=== PATIENT | female | born 1945 | race Caucasian/White ===

== ENCOUNTER → 2017-03-03 | Outpatient (CLI) | payer BC ==
--- NOTE | 2017-03-03 15:58 | RAD ---
DATE: 03/03/2017 EXAM: DIGITAL SCREEN BILAT W/CAD HISTORY: Screening study. COMPARISON: 10/31/2013 This study was interpreted with the benefit of Computerized Aided Detection (CAD). FINDINGS: Digital MLO and CC mammograms of both breasts were obtained. Comparison study is dated 10/31/2013. The breast parenchyma is heterogeneously dense which can obscure a lesion on mammography (breast density code C). Benign-appearing calcifications are seen within both breasts. No spiculated mass is seen. No malignant appearing calcification or area of architectural distortion is noted. IMPRESSION: BI-RADS Category 1, negative. There is no mammographic evidence of malignancy. Routine yearly screening mammography is recommended for follow-up. BI-RADS CATEGORY: 1 NEGATIVE RECOMMENDED FOLLOW-UP: 12M 12 MONTH FOLLOW-UP PQRS compliance statement: Patient information was entered into a reminder system with a target due date 03/03/2018 for the next mammogram. Mammography is a sensitive method for finding small breast cancers, but it does not detect them all and is not a substitute for careful clinical examination. A negative mammogram does not negate a clinically suspicious finding and should not result in delay in biopsying a clinically suspicious abnormality. "Our facility is accredited by the [employer] Mammography [employer]."
== END | disposition home or self-care (01) ==
LOC: MAMMO 08:47
PROVIDERS: ATTEND Family Medicine
DX: Z12.31 Encounter for screening mammogram for malignant neoplasm of breast (principal)
CPT/HCPCS: G0202; 77067

== ENCOUNTER → 2018-03-28 | Outpatient (CLI) | payer BC | END | disposition home or self-care (01) | LOC: MAMMO 09:23 | DX: Z12.31 Encounter for screening mammogram for malignant neoplasm of breast (principal); E78.5 Hyperlipidemia, unspecified | CPT/HCPCS: 77063; 77067 ==

== ENCOUNTER → 2019-04-03 | Outpatient (CLI) | payer BC ==
--- NOTE | 2019-04-03 15:47 | RAD ---
DATE: 04/03/2019. EXAM: MAMMO ANGELA SCREENING BILATERAL HISTORY: Routine screening. COMPARISON: . Mammogram from 2017 2016. This study was interpreted with the benefit of Computerized Aided Detection (CAD). FINDINGS: Breast Density: SCATTERED The breast parenchyma shows scattered fibroglandular densities. Breast parenchyma level B. The skin and nipples are within normal limits. No suspicious calcifications, spiculated mass or area of architectural distortion. IMPRESSION: No mammographic evidence of malignancy. Stable mammogram. BI-RADS CATEGORY: 2 BENIGN FINDING(S) RECOMMENDED FOLLOW-UP: 12M 12 MONTH FOLLOW-UP PQRS compliance statement: Patient information was entered into a reminder system with a target due date for the next mammogram. Mammography is a sensitive method for finding small breast cancers, but it does not detect them all and is not a substitute for careful clinical examination. A negative mammogram does not negate a clinically suspicious finding and should not result in delay in biopsying a clinically suspicious abnormality. "Our facility is accredited by the [employer] Mammography [employer]."
== END | disposition home or self-care (01) ==
LOC: MAMMO 14:03
PROVIDERS: ATTEND Family Medicine
DX: Z12.31 Encounter for screening mammogram for malignant neoplasm of breast (principal)
CPT/HCPCS: 77063; 77067

== ENCOUNTER → 2019-04-21 | Day surgery (SDC) | payer BC ==
[~2019-04-21] MED LIST: AMLO-292 PO; ATEN1TAB3 PO; GLIP5TAB10 PO; HYDROmorphone 2 MG/ML VIAL IV PRN; INSU100C4 SQ; INSU100V37 SQ; IV RINGERS,LACTATED 1000ML 1,000 ML IV SCH; LIDOCAINE 2% PF 5 ML VIAL. ONE; MORPHINE SULFATE 2 MG/ML VIAL. IV PRN; ONDANSETRON PF 4 MG/2 ML VIAL. IV PRN; PROCHLORPERAZINE 10 MG/2 ML VIAL. IV PRN; PROPOFOL 20 ML IV ONE; fentaNYL PF VIAL 100 MCG/2 ML VIAL IV PRN
[2019-04-21 08:25] VITALS: BP 164/78
== END ==
LOC: SURG 06:18
PROVIDERS: ATTEND Internal Medicine Gastroenterology
DX: Z12.11 Encounter for screening for malignant neoplasm of colon (principal); K64.0 First degree hemorrhoids; K63.89 Other specified diseases of intestine; E11.9 Type 2 diabetes mellitus without complications; I10 Essential (primary) hypertension; E78.00 Pure hypercholesterolemia, unspecified; F15.90 Other stimulant use, unspecified, uncomplicated; Z79.82 Long term (current) use of aspirin; Z79.84 Long term (current) use of oral hypoglycemic drugs; Z90.710 Acquired absence of both cervix and uterus; Z98.51 Tubal ligation status; Z80.0 Family history of malignant neoplasm of digestive organs
CPT/HCPCS: 45378; 82962; J2001; J2704

== ENCOUNTER 2019-11-05 07:56 | Observation (INO) | payer BC ==
[~2019-11-05] VITALS: Ht 175.3 cm; Wt 76.8 kg
[2019-11-05] VITALS (7 sets, daily range): BP systolic 135–173; BP diastolic 72–88
[~2019-11-05 07:56] MED LIST changes: -HYDROmorphone 2 MG/ML VIAL IV PRN; -IV RINGERS,LACTATED 1000ML 1,000 ML IV SCH; -LIDOCAINE 2% PF 5 ML VIAL. ONE; -MORPHINE SULFATE 2 MG/ML VIAL. IV PRN; -ONDANSETRON PF 4 MG/2 ML VIAL. IV PRN; -PROCHLORPERAZINE 10 MG/2 ML VIAL. IV PRN; -PROPOFOL 20 ML IV ONE; -fentaNYL PF VIAL 100 MCG/2 ML VIAL IV PRN
--- NOTE | 2019-11-05 08:18 | PHYS DOC ---
Past Medical History Past Medical History: Diabetes-Type II, Hypertension Adult General Chief Complaint Chief Complaint: DIZZY/LIGHT HEADED HPI HPI Patient is a 74 year old female who presented to ER today for evaluation of dizziness, the room spinning, symptoms get worse with head movement or upright position. Patient denies any headache, no weakness or numbness anywhere. Patient denies any blurry vision. Patient denies any chest pain, no trouble breathing. Patient went to sleep last night 8:30 p.m., she was doing okay then. Patient woke up this morning at 6:45 AM, she started having the symptoms when she sat up. She denies any ringing in her ear. Review of Systems Review of Systems All other ROS is negative unless otherwise noted in HPI Current Medications Current Medications Current Medications Medications (Trade) Dose Ordered Sig/Julee Start Time Stop Time Status Last Admin Dose Admin Meclizine HCl (Antivert) 25 mg 1X ONCE 11/05/19 09:30 11/05/19 09:31 DC 11/05/19 09:34 25 MG Allergies Allergies Allergies Coded Allergies Type Severity Reaction Last Updated Verified No Known Drug Allergies 04/21/19 No Physical Exam Physical Exam See aboveSee above Constitutional: Well developed, well nourished, no acute distress, non-toxic appearance. [] HENT: Normocephalic, atraumatic, bilateral external ears normal, oropharynx moist, no oral exudates, nose normal. [] Eyes: PERRLA, EOMI, conjunctiva normal, no discharge. [] Neck: Normal range of motion, no tenderness, supple, no stridor. [] Cardiovascular:Heart rate regular rhythm, no murmur [] Lungs & Thorax: Bilateral breath sounds clear to auscultation [] Abdomen: Bowel sounds normal, soft, no tenderness, no masses, no pulsatile masses. [] Skin: Warm, dry, no erythema, no rash. [] Back: No tenderness, no CVA tenderness. [] Extremities: No tenderness, no cyanosis, no clubbing, ROM intact, no edema. [] Neurologic: Alert and oriented X 3, normal motor function, normal sensory function, no focal deficits noted. [] Psychologic: Affect normal, judgement normal, mood normal. [] Current Patient Data Vital Signs Vital Signs Date Time Temp Pulse Resp B/P (MAP) Pulse Ox O2 Delivery O2 Flow Rate FiO2 2/16/20 10:32 86 16 100 11/05/19 08:22 98.1 200/91 (127) Room Air 98.1 Lab Values Laboratory Tests Test 11/05/19 09:45 White Blood Count 7.7 x10^3/uL (4.0-11.0) Red Blood Count 4.03 x10^6/uL (3.50-5.40) Hemoglobin 11.7 g/dL (12.0-15.5) L Hematocrit 34.6 % (36.0-47.0) L Mean Corpuscular Volume 86 fL (79-100) Mean Corpuscular Hemoglobin 29 pg (25-35) Mean Corpuscular Hemoglobin Concent 34 g/dL (31-37) Red Cell Distribution Width 13.1 % (11.5-14.5) Platelet Count 230 x10^3/uL (140-400) Neutrophils (%) (Auto) 68 % (31-73) Lymphocytes (%) (Auto) 24 % (24-48) Monocytes (%) (Auto) 7 % (0-9) Eosinophils (%) (Auto) 1 % (0-3) Basophils (%) (Auto) 1 % (0-3) Neutrophils # (Auto) 5.2 x10^3/uL (1.8-7.7) Lymphocytes # (Auto) 1.9 x10^3/uL (1.0-4.8) Monocytes # (Auto) 0.5 x10^3/uL (0.0-1.1) Eosinophils # (Auto) 0.1 x10^3/uL (0.0-0.7) Basophils # (Auto) 0.1 x10^3/uL (0.0-0.2) Prothrombin Time 12.7 SEC (11.7-14.0) Prothrombin Time INR 1.0 (0.8-1.1) Sodium Level 141 mmol/L (136-145) Potassium Level 4.2 mmol/L (3.5-5.1) Chloride Level 108 mmol/L (98-107) H Carbon Dioxide Level 22 mmol/L (21-32) Anion Gap 11 (6-14) Blood Urea Nitrogen 36 mg/dL (7-20) H Creatinine 1.3 mg/dL (0.6-1.0) H Estimated GFR (Cockcroft-Gault) 48.2 BUN/Creatinine Ratio 28 (6-20) H Glucose Level 127 mg/dL (70-99) H Calcium Level 9.2 mg/dL (8.5-10.1) Magnesium Level 1.8 mg/dL (1.8-2.4) Total Bilirubin 0.4 mg/dL (0.2-1.0) Aspartate Amino Transferase (AST) 25 U/L (15-37) Alanine Aminotransferase (ALT) 31 U/L (14-59) Alkaline Phosphatase 92 U/L (46-116) Troponin I Quantitative < 0.017 ng/mL (0.000-0.055) UM-Teb-R-Type Natriuretic Peptide 278 pg/mL (0-449) Total Protein 7.4 g/dL (6.4-8.2) Albumin 3.0 g/dL (3.4-5.0) L Albumin/Globulin Ratio 0.7 (1.0-1.7) L Lipase 126 U/L (73-393) Laboratory Tests 11/05/19 09:45 Laboratory Tests 11/05/19 09:45 EKG EKG EKG WAS DONE AT 840, RATE OF 82 BPM, NO STEMI [] Radiology/Procedures Radiology/Procedures [][facility] [address] [place] [address] IMAGING REPORT Signed PATIENT: KEVIN MADRIGAL ACCOUNT: [id number] : 1945 LOCATION: ER AGE: 74 SEX: F EXAM STATUS: REG ER ORD. PHYSICIAN: CORA SANTANA DO REASON: soa PROCEDURE: PORTABLE CHEST 1V Study: PORTABLE CHEST 1V Indication: Shortness of air. Comparison: None available. Findings: The cardiomediastinal silhouette is prominent in size. No overt central vascular congestion. Ill-defined haziness at the left lung base such is seen approaching the costophrenic angle. No lobar consolidation. No layering effusion or pneumothorax. Impression: 1. Prominence of the cardiomediastinal silhouette without features of overt failure/volume overload. 2. Mild ill-defined haziness at the lower left lung which could represent atelectasis or potentially an infiltrate in the appropriate clinical setting. Electronically signed by: AD MCNEILL MD (11/05/2019 8:35 AM) [facility] DICTATED and SIGNED BY: AD MCNEILL MD DATE: 11/05/19834 [facility] [address] [place] [address] IMAGING REPORT Signed PATIENT: KEVIN MADRIGAL ACCOUNT: [id number] : 1945 LOCATION: ER AGE: 74 SEX: F EXAM STATUS: REG ER ORD. PHYSICIAN: CORA SANTANA DO REASON: woke up with dizziness, room spinning around PROCEDURE: CT HEAD WO CONTRAST STUDY: CT head without contrast INDICATION: Dizziness. COMPARISON: None. TECHNIQUE: Axial CT imaging through the head without the use of intravenous contrast. Sagittal and coronal reformats were obtained. One or more of the following individualized dose reduction techniques were utilized for this examination: 1. Automated exposure control 2. Adjustment of the mA and/or kV according to patient size 3. Use of iterative reconstruction technique. FINDINGS: No acute intracranial hemorrhage. No CT evidence for an acute cortical infarction. No mass effect, midline shift or hydrocephalus. Intracranial atherosclerotic calcifications. White matter findings that are nonspecific but often seen in the setting of chronic microvascular ischemic change. Intact calvarium. Paranasal sinus mucosal thickening. Though not fully visualized, no layering fluid is seen within the paranasal sinuses. Normally aerated mastoid air cells and middle ears. IMPRESSION: 1. No acute intracranial abnormality by CT. 2. The paranasal sinuses are not fully visualized but the portion that is seen exhibits multifocal mucosal thickening. No layering fluid is identified but recommend correlation for symptoms of sinusitis. Unremarkable mastoid air cells and middle ears. Electronically signed by: AD MCNEILL MD (11/05/2019 8:44 AM) [facility] DICTATED and SIGNED BY: AD MCNEILL MD DATE: 11/05/19843 Course & Med Decision Making Course & Med Decision Making Pertinent Labs and Imaging studies reviewed. (See chart for details) Patient became very dizzy when she got up to use the toilet. Will admit her to the hospital for observation. Dragon Disclaimer Dragon Disclaimer This electronic medical record was generated, in whole or in part, using a voice recognition dictation system. Departure Departure Impression: Primary Impression: Dizziness Disposition: ADMITTED INPATIENT Admitting Physician: GWYN (DR. PAEZ) Condition: STABLE Referrals: NON,STAFF (PCP) CORA SANTANA DO Nov 05, 2019 08:18
--- NOTE | 2019-11-05 08:38 | RAD ---
Study: PORTABLE CHEST 1V Indication: Shortness of air. Comparison: None available. Findings: The cardiomediastinal silhouette is prominent in size. No overt central vascular congestion. Ill-defined haziness at the left lung base such is seen approaching the costophrenic angle. No lobar consolidation. No layering effusion or pneumothorax. Impression: 1. Prominence of the cardiomediastinal silhouette without features of overt failure/volume overload. 2. Mild ill-defined haziness at the lower left lung which could represent atelectasis or potentially an infiltrate in the appropriate clinical setting. Electronically signed by: AD MCNEILL MD (11/05/2019 8:35 AM) [facility]
--- NOTE | 2019-11-05 08:47 | RAD ---
STUDY: CT head without contrast INDICATION: Dizziness. COMPARISON: None. TECHNIQUE: Axial CT imaging through the head without the use of intravenous contrast. Sagittal and coronal reformats were obtained. One or more of the following individualized dose reduction techniques were utilized for this examination: 1. Automated exposure control 2. Adjustment of the mA and/or kV according to patient size 3. Use of iterative reconstruction technique. FINDINGS: No acute intracranial hemorrhage. No CT evidence for an acute cortical infarction. No mass effect, midline shift or hydrocephalus. Intracranial atherosclerotic calcifications. White matter findings that are nonspecific but often seen in the setting of chronic microvascular ischemic change. Intact calvarium. Paranasal sinus mucosal thickening. Though not fully visualized, no layering fluid is seen within the paranasal sinuses. Normally aerated mastoid air cells and middle ears. IMPRESSION: 1. No acute intracranial abnormality by CT. 2. The paranasal sinuses are not fully visualized but the portion that is seen exhibits multifocal mucosal thickening. No layering fluid is identified but recommend correlation for symptoms of sinusitis. Unremarkable mastoid air cells and middle ears. Electronically signed by: AD MCNEILL MD (11/05/2019 8:44 AM) [facility]
[2019-11-05] MEDS ORDERED: MECLIZINE HCL 12.5 MG TABLET. PO ONE (09:30)
[2019-11-05 09:55] LABS: BASO # 0.1 x10^3/uL (0.0-0.2); BASO % 1 % (0-3); EOS # 0.1 x10^3/uL (0.0-0.7); EOS % 1 % (0-3); HEMATOCRIT 34.6 % (36.0-47.0); HEMOGLOBIN 11.7 g/dL (12.0-15.5); LYMPH # 1.9 x10^3/uL (1.0-4.8); LYMPH % 24 % (24-48); MEAN CORPUSCULAR HEMOGLOBIN 29 pg (25-35); MEAN CORPUSCULAR HGB CONC 34 g/dL (31-37); MEAN CORPUSCULAR VOLUME 86 fL (79-100); MONO # 0.5 x10^3/uL (0.0-1.1); MONO % 7 % (0-9); NEUT # 5.2 x10^3/uL (1.8-7.7); NEUT % 68 % (31-73); PLATELET COUNT 230 x10^3/uL (140-400); RED BLOOD COUNT 4.03 x10^6/uL (3.50-5.40); RED CELL DISTRIBUTION WIDTH 13.1 % (11.5-14.5); WHITE BLOOD COUNT 7.7 x10^3/uL (4.0-11.0)
[2019-11-05 10:06] LABS: CALCIUM 9.2 mg/dL (8.5-10.1); CREATININE 1.3 mg/dL (0.6-1.0); GFR 48.2; POTASSIUM 4.2 mmol/L (3.5-5.1)
[2019-11-05 10:07] LABS: PROTHROMBIN TIME PATIENT 12.7 SEC (11.7-14.0)
[2019-11-05 10:11] LABS: ALBUMIN/GLOBULIN RATIO 0.7 (1.0-1.7); MAGNESIUM 1.8 mg/dL (1.8-2.4); TOTAL BILIRUBIN 0.4 mg/dL (0.2-1.0); TOTAL PROTEIN 7.4 g/dL (6.4-8.2)
[2019-11-05] MEDS ORDERED: ONDANSETRON PF 4 MG/2 ML VIAL. IV PRN (10:45)
[2019-11-05] MEDS ORDERED: hydrALAZINE 20 MG/ML VIAL. IVP PRN (12:45)
--- NOTE | 2019-11-05 18:52 | PDOC1 ---
History and Physical Date of Admission Date of Admission DATE: 11/05/19 TIME: 18:49 History of Present Illness History of Present Illness Ramona is a 74 year old female who presented to ER today for evaluation of dizziness, the room spinning, symptoms get worse with head movement or upright position. Patient denies any headache, no weakness or numbness anywhere. Patient denies any blurry vision. Patient denies any chest pain, no trouble breathing. Patient went to sleep last night 8:30 p.m., she was doing okay then. Patient woke up this morning at 6:45 AM, she started having the symptoms when she sat up. She denies any ringing in her ear. Past Medical History Cardiovascular: HTN Pulmonary: No pertinent hx ENT: No pertinent hx Renal/: No pertinent hx Endocrine: Diabetes Family History Family History: Diabetes Social History Smoke: No ALCOHOL: none Drugs: None Current Problem List Problem List Problems Medical Problems: (1) Dizziness Status: Acute Current Medications Current Medications Current Medications Meclizine HCl (Antivert) 25 mg 1X ONCE PO Last administered on 11/05/19at 09:34; Start 11/05/19 at 09:30; Stop 11/05/19 at 09:31; Status DC Ondansetron HCl (Zofran) 4 mg PRN Q8HRS PRN IV NAUSEA/VOMITING; Start 11/05/19 at 10:45; Stop 11/06/19 at 10:44 Hydralazine HCl (Apresoline Inj) 10 mg PRN Q6HRS PRN IVP ELEVATED BP, SEE COMMENTS; Start 11/05/19 at 12:45 Atorvastatin Calcium (Lipitor) 10 mg QHS PO ; Start 11/05/19 at 21:00 Aspirin (Ecotrin) 81 mg DAILYWBKFT PO ; Start 11/06/19 at 08:00 Spironolactone (Aldactone) 25 mg DAILY PO ; Start 11/06/19 at 09:00 Multivitamins (Thera M Plus) 1 tab DAILY PO ; Start 11/06/19 at 09:00 Magnesium Oxide (Magnesium Oxide) 200 mg DAILY PO ; Start 11/06/19 at 09:00 Glipizide (Glucotrol) 5 mg DAILY PO ; Start 11/06/19 at 09:00 Losartan Potassium (Cozaar) 100 mg DAILY PO ; Start 11/06/19 at 09:00 Amlodipine Besylate (Norvasc) 10 mg DAILY PO ; Start 11/06/19 at 09:00 Hydrochlorothiazide (Hydrodiuril) 25 mg DAILY PO ; Start 11/06/19 at 09:00 Active Scripts Active Reported Glipizide 5 Mg Tablet 5 Mg PO DAILY Exforge Hct 10-320-25 Mg Tab (Amlodipine/Valsartan/Hcthiazid) 1 Each Tablet 1 Each PO DAILY Allergies Allergies: Coded Allergies: No Known Drug Allergies (Unverified , 04/21/19) ROS General: No: Chills, Night Sweats, Fatigue, Malaise, Appetite, Other PSYCHOLOGICAL ROS: No: Anxiety, Behavioral Disorder, Concentration difficultie, Decreased libido, Depression, Disorientation, Hallucinations, Hostility, Irritablity, Memory difficulties, Mood Swings, Obsessive thoughts, Physical abuse, Sexual abuse, Sleep disturbances, Suicidal ideation, Other Eyes: No Blurry vision, No Decreased vision, No Double vision, No Dry eyes, No Excessive tearing, No Eye Pain, No Itchy Eyes, No Loss of vision, No Photophobia, No Scotomata, No Uses contacts, No Uses glasses, No Other HEENT: YES: Heacaches; No: Visual Changes, Hearing change, Nasal congestion, Nasal discharge, Oral lesions, Sinus pain, Sore Throat, Epistaxis, Sneezing, Snoring, Tinnitus, Vertigo, Vocal changes, Other Respiratory: No: Cough, Hemoptysis, Orthopnea, Pleuritic Pain, Shortness of breath, SOB with excertion, Sputum Changes, Stridor, Tachypnea, Wheezing, Other Gastrointestinal: No Nausea, No Vomiting, No Abdominal Pain, No Diarrhea, No Constipation, No Melena, No Hematochezia, No Other Genitourinary: No Dysuria, No Frequency, No Incontinence, No Hematuria, No Retention, No Discharge, No Urgency, No Pain, No Flank Pain, No Other, No , No , No , No , No , No , No Musculoskeletal: No Gait Disturbance, No Joint Pain, No Joint Stiffness, No Melinda nt Swelling, No Muscle Pain, No Muscular Weakness, No Pain In:, No Swelling In:, No Other Neurological: Yes Dizziness, Yes Gait Disturbance, Yes Impaired Coord/balance, Yes Weakness; No Behavorial Changes, No Bowel/Bladder ControlChng, No Confusion, No Headaches, No Memory Loss, No Numbness/Tingling, No Seizures, No Speech Problems, No Tremors, No Visual Changes, No Other Skin: No Dry Skin, No Eczema, No Hair Changes, No Lumps, No Mole Changes, No Mottling, No Nail Changes, No Pruritus, No Rash, No Skin Lesion Changes, No Other, No Acne Physical Exam General: Alert, Oriented X3, Cooperative, No acute distress HEENT: Atraumatic, EOMI, Mucous membr. moist/pink Lungs: Clear to auscultation, Normal air movement Heart: no gallops, no murmurs Abdomen: Normal bowel sounds, Soft Extremities: No cyanosis, No edema Skin: No rashes, No significant lesion Neuro: Normal speech, Normal tone, Sensation intact Psych/Mental Status: Mood NL Vitals Vitals Vital Signs Date Time Temp Pulse Resp B/P (MAP) Pulse Ox O2 Delivery O2 Flow Rate FiO2 11/05/19 18:40 92 135/72 (93) 11/05/19 16:17 Room Air 11/05/19 15:01 97.8 18 100 97.8 Labs Labs Laboratory Tests Test 11/05/19 09:45 White Blood Count 7.7 x10^3/uL (4.0-11.0) Red Blood Count 4.03 x10^6/uL (3.50-5.40) Hemoglobin 11.7 g/dL (12.0-15.5) Hematocrit 34.6 % (36.0-47.0) Mean Corpuscular Volume 86 fL (79-100) Mean Corpuscular Hemoglobin 29 pg (25-35) Mean Corpuscular Hemoglobin Concent 34 g/dL (31-37) Red Cell Distribution Width 13.1 % (11.5-14.5) Platelet Count 230 x10^3/uL (140-400) Neutrophils (%) (Auto) 68 % (31-73) Lymphocytes (%) (Auto) 24 % (24-48) Monocytes (%) (Auto) 7 % (0-9) Eosinophils (%) (Auto) 1 % (0-3) Basophils (%) (Auto) 1 % (0-3) Neutrophils # (Auto) 5.2 x10^3/uL (1.8-7.7) Lymphocytes # (Auto) 1.9 x10^3/uL (1.0-4.8) Monocytes # (Auto) 0.5 x10^3/uL (0.0-1.1) Eosinophils # (Auto) 0.1 x10^3/uL (0.0-0.7) Basophils # (Auto) 0.1 x10^3/uL (0.0-0.2) Prothrombin Time 12.7 SEC (11.7-14.0) Prothromb Time International Ratio 1.0 (0.8-1.1) Sodium Level 141 mmol/L (136-145) Potassium Level 4.2 mmol/L (3.5-5.1) Chloride Level 108 mmol/L (98-107) Carbon Dioxide Level 22 mmol/L (21-32) Anion Gap 11 (6-14) Blood Urea Nitrogen 36 mg/dL (7-20) Creatinine 1.3 mg/dL (0.6-1.0) Estimated GFR (Cockcroft-Gault) 48.2 BUN/Creatinine Ratio 28 (6-20) Glucose Level 127 mg/dL (70-99) Calcium Level 9.2 mg/dL (8.5-10.1) Magnesium Level 1.8 mg/dL (1.8-2.4) Total Bilirubin 0.4 mg/dL (0.2-1.0) Aspartate Amino Transf (AST/SGOT) 25 U/L (15-37) Alanine Aminotransferase (ALT/SGPT) 31 U/L (14-59) Alkaline Phosphatase 92 U/L (46-116) Troponin I Quantitative < 0.017 ng/mL (0.000-0.055) DH-Fzi-V-Type Natriuretic Peptide 278 pg/mL (0-449) Total Protein 7.4 g/dL (6.4-8.2) Albumin 3.0 g/dL (3.4-5.0) Albumin/Globulin Ratio 0.7 (1.0-1.7) Lipase 126 U/L (73-393) Laboratory Tests Test 11/05/19 09:45 White Blood Count 7.7 x10^3/uL (4.0-11.0) Red Blood Count 4.03 x10^6/uL (3.50-5.40) Hemoglobin 11.7 g/dL (12.0-15.5) Hematocrit 34.6 % (36.0-47.0) Mean Corpuscular Volume 86 fL (79-100) Mean Corpuscular Hemoglobin 29 pg (25-35) Mean Corpuscular Hemoglobin Concent 34 g/dL (31-37) Red Cell Distribution Width 13.1 % (11.5-14.5) Platelet Count 230 x10^3/uL (140-400) Neutrophils (%) (Auto) 68 % (31-73) Lymphocytes (%) (Auto) 24 % (24-48) Monocytes (%) (Auto) 7 % (0-9) Eosinophils (%) (Auto) 1 % (0-3) Basophils (%) (Auto) 1 % (0-3) Neutrophils # (Auto) 5.2 x10^3/uL (1.8-7.7) Lymphocytes # (Auto) 1.9 x10^3/uL (1.0-4.8) Monocytes # (Auto) 0.5 x10^3/uL (0.0-1.1) Eosinophils # (Auto) 0.1 x10^3/uL (0.0-0.7) Basophils # (Auto) 0.1 x10^3/uL (0.0-0.2) Prothrombin Time 12.7 SEC (11.7-14.0) Prothromb Time International Ratio 1.0 (0.8-1.1) Sodium Level 141 mmol/L (136-145) Potassium Level 4.2 mmol/L (3.5-5.1) Chloride Level 108 mmol/L (98-107) Carbon Dioxide Level 22 mmol/L (21-32) Anion Gap 11 (6-14) Blood Urea Nitrogen 36 mg/dL (7-20) Creatinine 1.3 mg/dL (0.6-1.0) Estimated GFR (Cockcroft-Gault) 48.2 BUN/Creatinine Ratio 28 (6-20) Glucose Level 127 mg/dL (70-99) Calcium Level 9.2 mg/dL (8.5-10.1) Magnesium Level 1.8 mg/dL (1.8-2.4) Total Bilirubin 0.4 mg/dL (0.2-1.0) Aspartate Amino Transf (AST/SGOT) 25 U/L (15-37) Alanine Aminotransferase (ALT/SGPT) 31 U/L (14-59) Alkaline Phosphatase 92 U/L (46-116) Troponin I Quantitative < 0.017 ng/mL (0.000-0.055) CR-Tsj-C-Type Natriuretic Peptide 278 pg/mL (0-449) Total Protein 7.4 g/dL (6.4-8.2) Albumin 3.0 g/dL (3.4-5.0) Albumin/Globulin Ratio 0.7 (1.0-1.7) Lipase 126 U/L (73-393) VTE Prophylaxis Ordered VTE Prophylaxis Devices: No VTE Pharmacological Prophylaxi: Yes Assessment/Plan Assessment/Plan dizzyness, new weakness not quite vertigo, will check orthostatics, TSH, monitor on tele, pre-syncope, she is worried about seizure and stroke, consult Neuro for reassurance. Dm2 htn admit MAGDY PAEZ MD Nov 05, 2019 18:52
[2019-11-05] MEDS ORDERED: IV NORMAL SALINE 1000ML BAG 1,000 ML IV ONE (19:00)
[2019-11-05] MEDS ORDERED: ENOXAPARIN 40 MG/0.4 ML SYRINGE. SQ SCH (20:00)
[2019-11-05] MEDS ORDERED: ATORVASTATIN CALCIUM 10 MG TABLET. PO SCH (21:00)
[2019-11-06] VITALS (10 sets, daily range): BP systolic 114–171; BP diastolic 70–91
--- NOTE | 2019-11-06 01:44 | EKG ---
[facility] [address] [place] [address] Test Date: 2019-11-05 Test Time: 08:40:45 Pat Name: KEVIN MADRIGAL Department: Room: Gender: F [employer] Adviser: : 1945 Requested By: CORA SANTANA Order Number: [id number] Reading MD: Measurements Intervals [place] Rate: 82 P: 49 IA: 128 QRS: -11 QRSD: 68 T: 43 QT: 352 QTc: 414 Interpretive Statements SINUS RHYTHM LEFT ATRIAL ABNORMALITY LEFTWARD AXIS ABNORMAL ECG RI6.01 No previous ECG available for comparison
[2019-11-06 04:12] LABS: BASO % 1 % (0-3); EOS # 0.1 x10^3/uL (0.0-0.7); EOS % 1 % (0-3); HEMATOCRIT 31.8 % (36.0-47.0); HEMOGLOBIN 10.7 g/dL (12.0-15.5); LYMPH # 2.9 x10^3/uL (1.0-4.8); LYMPH % 45 % (24-48); MEAN CORPUSCULAR HEMOGLOBIN 29 pg (25-35); MEAN CORPUSCULAR HGB CONC 34 g/dL (31-37); MEAN CORPUSCULAR VOLUME 87 fL (79-100); MONO # 0.5 x10^3/uL (0.0-1.1); MONO % 8 % (0-9); NEUT # 2.8 x10^3/uL (1.8-7.7); NEUT % 45 % (31-73); PLATELET COUNT 202 x10^3/uL (140-400); RED BLOOD COUNT 3.67 x10^6/uL (3.50-5.40); RED CELL DISTRIBUTION WIDTH 13.4 % (11.5-14.5); WHITE BLOOD COUNT 6.3 x10^3/uL (4.0-11.0)
[2019-11-06 05:00] LABS: CALCIUM 8.8 mg/dL (8.5-10.1); CREATININE 1.3 mg/dL (0.6-1.0); GFR 48.2; POTASSIUM 4.1 mmol/L (3.5-5.1)
[2019-11-06] MEDS ORDERED: ASPIRIN ENTERIC COATED 81 MG TABLET.DR. PO SCH (08:00)
[2019-11-06] MEDS ORDERED: amLODIPine BESYLATE 10 MG TABLET PO SCH (09:00)
[2019-11-06] MEDS ORDERED: MAGNESIUM OXIDE 400 MG TABLET PO SCH (09:00)
[2019-11-06] MEDS ORDERED: SPIRONOLACTONE 25 MG TABLET PO SCH (09:00)
[2019-11-06] MEDS ORDERED: LOSARTAN POTASSIUM 50 MG TABLET. PO SCH (09:00)
[2019-11-06] MEDS ORDERED: MULTIVITAMIN with MINERAL TABLET. PO SCH (09:00)
[2019-11-06] MEDS ORDERED: hydroCHLOROthiazide 25 MG TABLET PO SCH (09:00)
[2019-11-06] MEDS ORDERED: glipiZIDE 5 MG TABLET PO SCH (09:00)
[2019-11-06] MEDS ORDERED: DEXTROSE 50% 25 GM / 50ML DISP.SYRIN. IV PRN (13:00)
--- NOTE | 2019-11-06 15:24 | NUR ---
SS following for discharge planning. SS reviewed pt chart. Pt is from home with spouse and is currently on room air. PT/OT ordered. SS will continue to follow for discharge planning.
--- NOTE | 2019-11-06 15:41 | PDOC2 ---
NEUROLOGY CONSULT Date of Admission Date of Admission DATE: 11/06/19 TIME: 15:30 Reason for Consult Reason for Consult: IMPRESSION: Hypertensive urgency, SBP 200 mmHg. Hypertensive encephalopathy. Metabolic encephalopathy. Dizziness. Syncopal spell. HTN, poorly controlled. DM. RECOMMENDATIONS/PLAN: BP control. Treat medical diseases. Lab: see orders. HCT negative. FU with PCP. History of Present Illness This is a 74-year-old AA female patient who presented to the ER on 11/05/19 due to syncopal like episodes, dizziness, unsteadiness, feeling of the room spinning. Her symptoms get worse with head movement or upright position. She stated her BP was always high in 170s. She has not taken her anti-hypertensive medications for about 2 days before coming here and she said she forgot to take medications sometimes. No acute sensory or motor deficits. Past Medical History Cardiovascular: HTN Pulmonary: No pertinent hx ENT: No pertinent hx Renal/: No pertinent hx Endocrine: Diabetes Family History Diabetes Social History Smoke: No ALCOHOL: none Drugs: None ALLERGY: NKDA MEDICATIONS: Refer to MAR REVIEW OF SYSTEMS: Constitutional: No malnutrition, weight loss, cachexia. Head: No traumatic brain or head injury. Skin: No edema, or rash. Ear: No infection. Eyes: No vision loss or color blindness. Nose: No bleeding or purulent discharges. Hearing: No hearing decrease. Neck: No injury. Breast: No history of cancer, masses,or discharges. Cardiac: HTN. Pulmonary: No COPD. GI: No GI ulcer, GI bleeding. Urinary/genital: UTI. Endocrinologic: Diabetes Mellitus. Skeletomuscular: No muscular atrophy, deformity. Neurological: see HP. Psychiatric: Denies drug use/abuse. Otherwise, not [id number] review of systems. PHYSICAL EXAMINATION: General appearance is in subacute distress. HEENT: Normocephalic and nontraumatic. Eyes, nose, ears, and throat are unremarkable. Neck is supple. No lymphadenopathy. No crepitus. Cardiovascular: S1, S2, regular rate and rhythm. Pulmonary: Clear to auscultation bilaterally. Abdomen: Bowel sounds are positive. Abdomen is soft, nontender, and nondisten ded. Extremities: No rash, lesions, or edema. No restriction of range of motion NEUROLOGICAL EXAMINATION: Alert Oriented to time, place and person. PERRL. EOMI. CN: no focal findings. Muscle tone: within normal. Muscle strength: 5 DTR: 2 Plantar reflex: Flexorl response bilaterally Gait: not examined in bed. Sensory exam: no abnormal findings. No cerebellar signs elicited. F-T-N test normal. Current Medications Current Medications Current Medications Meclizine HCl (Antivert) 25 mg 1X ONCE PO Last administered on 11/05/19at 09:34; Start 11/05/19 at 09:30; Stop 11/05/19 at 09:31; Status DC Ondansetron HCl (Zofran) 4 mg PRN Q8HRS PRN IV NAUSEA/VOMITING; Start 11/05/19 at 10:45; Stop 11/06/19 at 10:44; Status DC Hydralazine HCl (Apresoline Inj) 10 mg PRN Q6HRS PRN IVP ELEVATED BP, SEE COMMENTS; Start 11/05/19 at 12:45 Atorvastatin Calcium (Lipitor) 10 mg QHS PO ; Start 11/05/19 at 21:00 Aspirin (Ecotrin) 81 mg DAILYWBKFT PO Last administered on 11/06/19at 08:52; Start 11/06/19 at 08:00 Spironolactone (Aldactone) 25 mg DAILY PO Last administered on 11/06/19at 08:52; Start 11/06/19 at 09:00 Multivitamins (Thera M Plus) 1 tab DAILY PO Last administered on 11/06/19at 08:52; Start 11/06/19 at 09:00 Magnesium Oxide (Magnesium Oxide) 200 mg DAILY PO Last administered on 11/06/19at 08:51; Start 11/06/19 at 09:00 Glipizide (Glucotrol) 5 mg DAILY PO Last administered on 11/06/19at 08:52; Start 11/06/19 at 09:00 Losartan Potassium (Cozaar) 100 mg DAILY PO Last administered on 11/06/19at 08:51; Start 11/06/19 at 09:00 Amlodipine Besylate (Norvasc) 10 mg DAILY PO Last administered on 11/06/19at 08:52; Start 11/06/19 at 09:00 Hydrochlorothiazide (Hydrodiuril) 25 mg DAILY PO Last administered on 11/06/19at 08:51; Start 2/17/20 at 09:00 Sodium Chloride 1,000 ml @ 100 mls/hr 1X ONCE IV Last administered on 0at 20:26; Start 11/05/19 at 19:00; Stop 11/06/19 at 04:59; Status DC Enoxaparin Sodium (Lovenox Per Pharmacy Prophylaxis Dosing) 1 each PRN DAILY PRN MC SEE COMMENTS; Start 11/05/19 at 19:00 Enoxaparin Sodium (Lovenox 40mg Syringe) 40 mg Q24H SQ Last administered on 11/05/19at 20:28; Start 11/05/19 at 20:00 Insulin Human Lispro (HumaLOG) 0-5 UNITS TIDWMEALS SQ ; Start 11/06/19 at 17:00 Dextrose (Dextrose 50%-Water Syringe) 12.5 gm PRN Q15MIN PRN IV SEE COMMENTS; Start 11/06/19 at 13:00 Active Scripts Active Reported Glipizide 5 Mg Tablet 5 Mg PO DAILY Exforge Hct 10-320-25 Mg Tab (Amlodipine/Valsartan/Hcthiazid) 1 Each Tablet 1 Each PO DAILY Allergies Allergies: Allergies Coded Allergies Type Severity Reaction Last Updated Verified No Known Drug Allergies 04/21/19 No ROS Review of System The patient denies any associated fevers, chills, headache, ear pain, rhinorrhea, sore throat, stiff neck, productive cough, chest pain, shortness of breath, back or flank pain, abdominal pain, nausea, vomiting, diarrhea, constipation, dysuria, rash, numbness, weakness, tingling, incontinence, difficulty ambulating, or diaphoresis. Physical Exam Physical Exam General: Well developed, well nourished, no acute distress, well appearing HEENT: Pupils equally round and reactive to light, EOMI, no discharge, normal conjunctiva Neck: Supple, no nuchal rigidity, no JVD, trachea midline, no tenderness Cardiac: RRR, no murmurs, no gallops, no rubs Chest/Lungs: CTAB, no wheeze, no rhonchi, no crackles Abdomen: soft, non-distended, no guarding, no peritoneal signs, non-tender Back: No tenderness Extremities: no edema, pulses intact, non-tender,capillary refill <3 sec bilateral upper and lower extremities, Neuro: Alert and oriented x 4, no focal deficits, normal speech Vitals Vitals: Vital Signs Date Time Temp Pulse Resp B/P (MAP) Pulse Ox O2 Delivery O2 Flow Rate FiO2 11/06/19 11:05 91 156/91 (112) 11/06/19 11:00 97.3 16 98 Room Air 97.3 Labs Labs Laboratory Tests Test 11/05/19 09:45 11/05/19 23:18 11/06/19 03:10 11/06/19 10:56 White Blood Count 7.7 x10^3/uL (4.0-11.0) 6.3 x10^3/uL (4.0-11.0) Red Blood Count 4.03 x10^6/uL (3.50-5.40) 3.67 x10^6/uL (3.50-5.40) Hemoglobin 11.7 g/dL (12.0-15.5) 10.7 g/dL (12.0-15.5) Hematocrit 34.6 % (36.0-47.0) 31.8 % (36.0-47.0) Mean Corpuscular Volume 86 fL (79-100) 87 fL (79-100) Mean Corpuscular Hemoglobin 29 pg (25-35) 29 pg (25-35) Mean Corpuscular Hemoglobin Concent 34 g/dL (31-37) 34 g/dL (31-37) Red Cell Distribution Width 13.1 % (11.5-14.5) 13.4 % (11.5-14.5) Platelet Count 230 x10^3/uL (140-400) 202 x10^3/uL (140-400) Neutrophils (%) (Auto) 68 % (31-73) 45 % (31-73) Lymphocytes (%) (Auto) 24 % (24-48) 45 % (24-48) Monocytes (%) (Auto) 7 % (0-9) 8 % (0-9) Eosinophils (%) (Auto) 1 % (0-3) 1 % (0-3) Basophils (%) (Auto) 1 % (0-3) 1 % (0-3) Neutrophils # (Auto) 5.2 x10^3/uL (1.8-7.7) 2.8 x10^3/uL (1.8-7.7) Lymphocytes # (Auto) 1.9 x10^3/uL (1.0-4.8) 2.9 x10^3/uL (1.0-4.8) Monocytes # (Auto) 0.5 x10^3/uL (0.0-1.1) 0.5 x10^3/uL (0.0-1.1) Eosinophils # (Auto) 0.1 x10^3/uL (0.0-0.7) 0.1 x10^3/uL (0.0-0.7) Basophils # (Auto) 0.1 x10^3/uL (0.0-0.2) 0.0 x10^3/uL (0.0-0.2) Prothrombin Time 12.7 SEC (11.7-14.0) Prothromb Time International Ratio 1.0 (0.8-1.1) Sodium Level 141 mmol/L (136-145) 143 mmol/L (136-145) Potassium Level 4.2 mmol/L (3.5-5.1) 4.1 mmol/L (3.5-5.1) Chloride Level 108 mmol/L (98-107) 109 mmol/L (98-107) Carbon Dioxide Level 22 mmol/L (21-32) 24 mmol/L (21-32) Anion Gap 11 (6-14) 10 (6-14) Blood Urea Nitrogen 36 mg/dL (7-20) 30 mg/dL (7-20) Creatinine 1.3 mg/dL (0.6-1.0) 1.3 mg/dL (0.6-1.0) Estimated GFR (Cockcroft-Gault) 48.2 48.2 BUN/Creatinine Ratio 28 (6-20) Glucose Level 127 mg/dL (70-99) 153 mg/dL (70-99) Calcium Level 9.2 mg/dL (8.5-10.1) 8.8 mg/dL (8.5-10.1) Magnesium Level 1.8 mg/dL (1.8-2.4) Total Bilirubin 0.4 mg/dL (0.2-1.0) Aspartate Amino Transf (AST/SGOT) 25 U/L (15-37) Alanine Aminotransferase (ALT/SGPT) 31 U/L (14-59) Alkaline Phosphatase 92 U/L (46-116) Troponin I Quantitative < 0.017 ng/mL (0.000-0.055) AE-Lwa-Q-Type Natriuretic Peptide 278 pg/mL (0-449) Total Protein 7.4 g/dL (6.4-8.2) Albumin 3.0 g/dL (3.4-5.0) Albumin/Globulin Ratio 0.7 (1.0-1.7) Lipase 126 U/L (73-393) Glucose (Fingerstick) 132 mg/dL (70-99) 171 mg/dL (70-99) Laboratory Tests Test 11/05/19 23:18 11/06/19 03:10 11/06/19 10:56 Glucose (Fingerstick) 132 mg/dL (70-99) 171 mg/dL (70-99) White Blood Count 6.3 x10^3/uL (4.0-11.0) Red Blood Count 3.67 x10^6/uL (3.50-5.40) Hemoglobin 10.7 g/dL (12.0-15.5) Hematocrit 31.8 % (36.0-47.0) Mean Corpuscular Volume 87 fL (79-100) Mean Corpuscular Hemoglobin 29 pg (25-35) Mean Corpuscular Hemoglobin Concent 34 g/dL (31-37) Red Cell Distribution Width 13.4 % (11.5-14.5) Platelet Count 202 x10^3/uL (140-400) Neutrophils (%) (Auto) 45 % (31-73) Lymphocytes (%) (Auto) 45 % (24-48) Monocytes (%) (Auto) 8 % (0-9) Eosinophils (%) (Auto) 1 % (0-3) Basophils (%) (Auto) 1 % (0-3) Neutrophils # (Auto) 2.8 x10^3/uL (1.8-7.7) Lymphocytes # (Auto) 2.9 x10^3/uL (1.0-4.8) Monocytes # (Auto) 0.5 x10^3/uL (0.0-1.1) Eosinophils # (Auto) 0.1 x10^3/uL (0.0-0.7) Basophils # (Auto) 0.0 x10^3/uL (0.0-0.2) Sodium Level 143 mmol/L (136-145) Potassium Level 4.1 mmol/L (3.5-5.1) Chloride Level 109 mmol/L (98-107) Carbon Dioxide Level 24 mmol/L (21-32) Anion Gap 10 (6-14) Blood Urea Nitrogen 30 mg/dL (7-20) Creatinine 1.3 mg/dL (0.6-1.0) Estimated GFR (Cockcroft-Gault) 48.2 Glucose Level 153 mg/dL (70-99) Calcium Level 8.8 mg/dL (8.5-10.1) GRAY BEAR MD Nov 06, 2019 15:41
[2019-11-06] MEDS ORDERED: ASPI-612 PO (16:44)
--- NOTE | 2019-11-06 16:50 | PDOC3 ---
Discharge Summary Visit Information Date of Admission: Nov 05, 2019 Date of Discharge: Nov 06, 2019 Admitting Diagnosis Comment: dizzyness, new weakness not quite vertigo, will check orthostatics, TSH, monitor on tele, pre-syncope, she is worried about seizure and stroke, consult Neuro for reassurance. Dm2 htn admit Final Diagnosis Problems Medical Problems: (1) Dizziness resolved, most likely BPV Status: Acute Essential hypertension Diabetes mellitus type 2 Brief Hospital Course Allergies Allergies Coded Allergies Type Severity Reaction Last Updated Verified No Known Drug Allergies 04/21/19 No Vital Signs Vital Signs Date Time Temp Pulse Resp B/P (MAP) Pulse Ox O2 Delivery O2 Flow Rate FiO2 11/06/19 15:05 79 20 162/79 (106) 11/06/19 15:02 Room Air 11/06/19 15:00 97.8 98 97.8 Lab Results Laboratory Tests Test 11/05/19 09:45 11/05/19 23:18 11/06/19 03:10 11/06/19 10:56 White Blood Count 7.7 x10^3/uL (4.0-11.0) 6.3 x10^3/uL (4.0-11.0) Red Blood Count 4.03 x10^6/uL (3.50-5.40) 3.67 x10^6/uL (3.50-5.40) Hemoglobin 11.7 g/dL (12.0-15.5) 10.7 g/dL (12.0-15.5) Hematocrit 34.6 % (36.0-47.0) 31.8 % (36.0-47.0) Mean Corpuscular Volume 86 fL (79-100) 87 fL (79-100) Mean Corpuscular Hemoglobin 29 pg (25-35) 29 pg (25-35) Mean Corpuscular Hemoglobin Concent 34 g/dL (31-37) 34 g/dL (31-37) Red Cell Distribution Width 13.1 % (11.5-14.5) 13.4 % (11.5-14.5) Platelet Count 230 x10^3/uL (140-400) 202 x10^3/uL (140-400) Neutrophils (%) (Auto) 68 % (31-73) 45 % (31-73) Lymphocytes (%) (Auto) 24 % (24-48) 45 % (24-48) Monocytes (%) (Auto) 7 % (0-9) 8 % (0-9) Eosinophils (%) (Auto) 1 % (0-3) 1 % (0-3) Basophils (%) (Auto) 1 % (0-3) 1 % (0-3) Neutrophils # (Auto) 5.2 x10^3/uL (1.8-7.7) 2.8 x10^3/uL (1.8-7.7) Lymphocytes # (Auto) 1.9 x10^3/uL (1.0-4.8) 2.9 x10^3/uL (1.0-4.8) Monocytes # (Auto) 0.5 x10^3/uL (0.0-1.1) 0.5 x10^3/uL (0.0-1.1) Eosinophils # (Auto) 0.1 x10^3/uL (0.0-0.7) 0.1 x10^3/uL (0.0-0.7) Basophils # (Auto) 0.1 x10^3/uL (0.0-0.2) 0.0 x10^3/uL (0.0-0.2) Prothrombin Time 12.7 SEC (11.7-14.0) Prothromb Time International Ratio 1.0 (0.8-1.1) Sodium Level 141 mmol/L (136-145) 143 mmol/L (136-145) Potassium Level 4.2 mmol/L (3.5-5.1) 4.1 mmol/L (3.5-5.1) Chloride Level 108 mmol/L (98-107) 109 mmol/L (98-107) Carbon Dioxide Level 22 mmol/L (21-32) 24 mmol/L (21-32) Anion Gap 11 (6-14) 10 (6-14) Blood Urea Nitrogen 36 mg/dL (7-20) 30 mg/dL (7-20) Creatinine 1.3 mg/dL (0.6-1.0) 1.3 mg/dL (0.6-1.0) Estimated GFR (Cockcroft-Gault) 48.2 48.2 BUN/Creatinine Ratio 28 (6-20) Glucose Level 127 mg/dL (70-99) 153 mg/dL (70-99) Calcium Level 9.2 mg/dL (8.5-10.1) 8.8 mg/dL (8.5-10.1) Magnesium Level 1.8 mg/dL (1.8-2.4) Total Bilirubin 0.4 mg/dL (0.2-1.0) Aspartate Amino Transf (AST/SGOT) 25 U/L (15-37) Alanine Aminotransferase (ALT/SGPT) 31 U/L (14-59) Alkaline Phosphatase 92 U/L (46-116) Troponin I Quantitative < 0.017 ng/mL (0.000-0.055) PB-Ich-X-Type Natriuretic Peptide 278 pg/mL (0-449) Total Protein 7.4 g/dL (6.4-8.2) Albumin 3.0 g/dL (3.4-5.0) Albumin/Globulin Ratio 0.7 (1.0-1.7) Lipase 126 U/L (73-393) Glucose (Fingerstick) 132 mg/dL (70-99) 171 mg/dL (70-99) Laboratory Tests Test 11/05/19 23:18 11/06/19 03:10 11/06/19 10:56 Glucose (Fingerstick) 132 mg/dL (70-99) 171 mg/dL (70-99) White Blood Count 6.3 x10^3/uL (4.0-11.0) Red Blood Count 3.67 x10^6/uL (3.50-5.40) Hemoglobin 10.7 g/dL (12.0-15.5) Hematocrit 31.8 % (36.0-47.0) Mean Corpuscular Volume 87 fL (79-100) Mean Corpuscular Hemoglobin 29 pg (25-35) Mean Corpuscular Hemoglobin Concent 34 g/dL (31-37) Red Cell Distribution Width 13.4 % (11.5-14.5) Platelet Count 202 x10^3/uL (140-400) Neutrophils (%) (Auto) 45 % (31-73) Lymphocytes (%) (Auto) 45 % (24-48) Monocytes (%) (Auto) 8 % (0-9) Eosinophils (%) (Auto) 1 % (0-3) Basophils (%) (Auto) 1 % (0-3) Neutrophils # (Auto) 2.8 x10^3/uL (1.8-7.7) Lymphocytes # (Auto) 2.9 x10^3/uL (1.0-4.8) Monocytes # (Auto) 0.5 x10^3/uL (0.0-1.1) Eosinophils # (Auto) 0.1 x10^3/uL (0.0-0.7) Basophils # (Auto) 0.0 x10^3/uL (0.0-0.2) Sodium Level 143 mmol/L (136-145) Potassium Level 4.1 mmol/L (3.5-5.1) Chloride Level 109 mmol/L (98-107) Carbon Dioxide Level 24 mmol/L (21-32) Anion Gap 10 (6-14) Blood Urea Nitrogen 30 mg/dL (7-20) Creatinine 1.3 mg/dL (0.6-1.0) Estimated GFR (Cockcroft-Gault) 48.2 Glucose Level 153 mg/dL (70-99) Calcium Level 8.8 mg/dL (8.5-10.1) Brief Hospital Course Ms. Murillo is a 74 old female who presented with sensation of room spinning. She had some unsteadiness and she was brought to the emergency department because she was concerned about having a stroke. Initially she was noted to have hypertension in the 200s which may have prompted her symptoms altogether. Patient has not been taking her medications as recommended. She was evaluated by neurology but no further workup was deemed necessary given the normal neurological exam. Family members were at bedside and reassurance was provided. Encouraged to maintain better control of her blood pressure she is on 3 different medications once she was restarted on her medications blood pressure was better controlled. Size and symptoms of alarm and when to seek medical attention was discussed with the patient and family members at bedside she had been gaining a tony rooms the day before the events but I reassured family members that probably just a coincidence and that most likely her symptoms are due to uncontrolled hypertension. In good spirits to be dismissed home she voiced understanding of all the instructions, sap plant maintenance consultant recommended increasing her aspirin to 162 mg daily Physical exam for today: Gen.: well-developed well-nourished in no apparent distress Head: Normal shape atraumatic Eyes: Pupils equal reactive to light and accommodation, normal conjunctivae and lids Ears: Normal shape Chest: Lungs clear to auscultation with good inspiratory effort no crackles rales or rhonchi Cardiovascular: S1-S2 regular rhythm faint systolic murmurs without radiation no gallops or rubs Abdomen: Bowel sounds present soft nontender no hepatosplenomegaly appreciated sign Extremities: No clubbing no cyanosis no edema peripheral pulses palpated bilaterally Neurological: Alert awake oriented in person time place and situation, cranial nerves II through XII intact, no motor or sensory deficits appreciated Psych: Appropriate mood, cooperative Discharge Information Condition at Discharge: Improved Follow Up: Weeks Disposition/Orders: D/C to Home Scheduled Amlodipine/Valsartan/Hcthiazid (Exforge Hct 10-320-25 Mg Tab) 1 Each Tablet, 1 EACH PO DAILY for heart, (Reported) Entered as Reported by: LILLY GALINDO on 04/21/19699 Last Action: Converted on 11/05/191729 by MAGDY PAEZ Aspirin (Aspirin Ec) 81 Mg Tablet.dr, 162 MG PO DAILYWBKFT for antiplatelet for 30 Days, #60 Prescribed by: CAROL SUN MD on 11/06/191643 Glipizide (Glipizide) 5 Mg Tablet, 5 MG PO DAILY for iddm, (Reported) Entered as Reported by: LILLY GALINDO on 04/21/19699 Last Action: Continued on 11/05/191729 by MAGDY PAEZ Discontinued Medications Atenolol/Chlorthalidone (Atenolol-Chlorthal 50-25 Tb) 1 Each Tablet, 1 TAB PO DAILY for ANTIHYPERTENSIVE, (Reported) Entered as Reported by: LILLY GALINDO on 04/21/19699 Last Action: Discontinued on 11/05/191642 by BIB FLOWERS RN Insulin Aspart (Novolog) 100 Unit/1 Ml Cartridge, 24 UNIT SQ BID for iddm, (Reported) Entered as Reported by: LILLY GALINDO on 04/21/19699 Last Action: Discontinued on 11/05/191642 by BIB FLOWERS RN Insulin Degludec (Tresiba) 100 Unit/1 Ml Vial, 56 UNIT SQ HS for iddm, (Reported) Entered as Reported by: LILLY GALINDO on 04/21/19 0700 Last Action: Discontinued on 11/05/19 1643 by JOSE LÓPEZ HECTOR M MD Nov 06, 2019 16:50
[2019-11-06] MEDS ORDERED: INSULIN LISPRO 300 UNITS/3 ML VIAL. SQ SCH (17:00)
--- NOTE | 2019-11-06 17:20 | NUR ---
Pt escorted out via wheelchair by this RN, IV and telemonitor off. Education given to patient and family. Tolerated well. Accompanied by family member whom drove.
== END 2019-11-06 17:12 | disposition home or self-care (01) ==
LOC: ER 07:56 → ED HOLD 10:42 → 6 SOUTH 16:00
PROVIDERS: ADMIT Internal Medicine; ATTEND Internal Medicine
DX: R42 Dizziness and giddiness (principal); I10 Essential (primary) hypertension; Z79.82 Long term (current) use of aspirin
CPT/HCPCS: 36415; 70450; 71045; 80048; 80053; 82962; 83690; 83735; 83880; 84484; 85025; 85610; 93005; 96372; 97116; 97162; 97165; 97530; 99285; G0378; J1650; J1815; J7030; J8597; G0379

== ENCOUNTER → 2020-05-09 | Outpatient (CLI) | payer BC ==
[2019-11-06 15:05] VITALS: BP 162/79
[~2020-05-09] MED LIST changes: +ASPI-886 PO
--- NOTE | 2020-05-09 16:50 | KCIC ---
EXAM: Renal sonogram. HISTORY: Renal failure. TECHNIQUE: Sonographic imaging of the kidneys and bladder was performed. COMPARISON: None. FINDINGS: The kidneys are normal in size. No solid or cystic renal lesion is seen. There is echogenic renal parenchyma. There is no hydronephrosis. The bladder is empty. No post void residual is seen. IMPRESSION: Echogenic renal parenchyma, a finding which can be seen with medical renal disease. Electronically signed by: Tari Birch MD (05/09/2020 4:47 PM) [facility]
== END | disposition home or self-care (01) ==
LOC: EDBD 15:36 → KCIC US 15:36
PROVIDERS: ATTEND Internal Medicine Nephrology
DX: N28.89 Other specified disorders of kidney and ureter (principal); N17.9 Acute kidney failure, unspecified
CPT/HCPCS: 76770

== ENCOUNTER → 2020-08-12 | Outpatient (CLI) | payer BC ==
[2019-11-06 15:05] VITALS: BP 162/79
--- NOTE | 2020-08-13 09:17 | RAD ---
DATE: 08/12/2020 1:30 PM EXAM: MAMMO ANGELA SCREENING BILATERAL HISTORY: Screening COMPARISON: 04/03/2019, 03/28/2018 Bilateral CC and MLO views of the breasts were performed. Bilateral breast tomosynthesis was performed in CC and MLO projections. This study was interpreted with the benefit of Computerized Aided Detection (CAD). FINDINGS: Breast Density: SCATTERED The breast parenchyma shows scattered fibroglandular densities. Breast parenchyma level B No suspicious masses, microcalcifications or architectural distortion is present to suggest malignancy in either breast. The visualized axillae are unremarkable. IMPRESSION: No mammographic evidence of malignancy. BI-RADS CATEGORY: 1 NEGATIVE RECOMMENDED FOLLOW-UP: 12M 12 MONTH FOLLOW-UP Annual screening mammography is recommended, unless clinically indicated sooner based on symptoms or change in physical exam. PQRS compliance statement: Patient information was entered into a reminder system with a target due date for the next mammogram. Mammography is a sensitive method for finding small breast cancers, but it does not detect them all and is not a substitute for careful clinical examination. A negative mammogram does not negate a clinically suspicious finding and should not result in delay in biopsying a clinically suspicious abnormality. "Our facility is accredited by the [employer] Mammography Program."
== END ==
LOC: MAMMO 13:03
PROVIDERS: ATTEND Family Medicine
DX: Z12.31 Encounter for screening mammogram for malignant neoplasm of breast (principal)
CPT/HCPCS: 77063; 77067

== ENCOUNTER → 2021-08-13 | Outpatient (CLI) | payer BC ==
[2021-01-12 14:32] VITALS: BP 138/70
[~2021-08-13] MED LIST changes: +AMLO-308 PO; +ATOR40TA59 PO; +CHLO25TA10 PO; +SPIR100T4 PO
--- NOTE | 2021-08-13 09:03 | KCIC ---
INDICATION: Screening for osteopenia/osteoporosis. Reason: POST MENOPAUSAL / Spl. Instructions: / H istory: COMPARISON: None. TECHNIQUE: Bone densitometry was performed through the lumbar spine and proximal femur. IMPRESSION: Lumbar Spine: BMD: 1.3 T-Score: 2.3 Range: Normal Proximal Femur: BMD: 0.77 T-Score: -1.4 Range: Osteopenic World Health Organization Criteria for Bone Density: T-Score: > -1.0: Normal Range < -1.0 to -2.5: Osteopenic Range < -2.5: Osteoporotic Range Electronically signed by: Sotero Laguna MD (08/13/2021 9:01 AM) [id number]
--- NOTE | 2021-08-13 10:14 | KCIC ---
Bilateral digital screening mammograms with 3-D tomosynthesis: Reason for examination: Routine screening. Comparison is made to previous studies dated back to 10/31/2013. Bilateral mammograms in CC and oblique projections were obtained with 2-D imaging and 3-D tomosynthes is imaging on a Siemens Inspiration unit and reviewed on the workstation. Interpretation was made wit h the benefit of CAD. The skin and nipples show no abnormalities. No abnormal axillary lymph nodes are seen. The breast par enchyma shows scattered fatty and fibroglandular density. (Breast density: Category B.) There are no dominant masses, suspicious calcifications or architectural distortion. Impression: No evidence of malignancy. Recommend routine screening. BI-RAD Category 1: Negative. "Our facility is accredited by the [employer] Mammography Program." This patient's information has been entered into a reminder system for the patient to be notified wit h the results of her examination and a target date for the next mammogram. Electronically signed by: Lianna Montano MD (08/13/2021 10:11 AM) [id number]
== END ==
LOC: KCIC MAMMO 08:08
PROVIDERS: ATTEND Family Medicine
DX: Z12.31 Encounter for screening mammogram for malignant neoplasm of breast (principal); M85.88 Other specified disorders of bone density and structure, other site; Z78.0 Asymptomatic menopausal state
CPT/HCPCS: 77063; 77067; 77080